=== PATIENT | male | born 1970 | race Caucasian/White ===

== ENCOUNTER 2020-02-17 17:05 | Emergency (ER) | payer OTHER ==
[~2020-02-17] VITALS: Ht 177.8 cm; Wt 102.1 kg
[2020-02-17] MEDS ORDERED: LISINOPRIL-HCT1 EAC1 PO (18:10)
[2020-02-17] MEDS ORDERED: DICYCLOMINE HCL10 MG PO (20:49)
== END 2020-02-17 21:22 | disposition home or self-care (01) ==
LOC: ED 17:05
DX: K52.9 Noninfective gastroenteritis and colitis, unspecified (principal); D72.829 Elevated white blood cell count, unspecified
CPT/HCPCS: 74018; 74177; 80053; 81001; 83690; 85025; 96361; 96375; 99284-25; J1885; J2270; J2405; J7030; Q9967

== ENCOUNTER 2024-02-03 11:05 | Emergency (ER) | payer SELFPAY ==
[~2024-02-03] VITALS: Ht 177.8 cm; Wt 98.8 kg
[~2024-02-03 11:05] MED LIST: DICYCLOMINE HCL10 MG PO; LISINOPRIL-HCT1 EAC1 PO
[2024-02-03] MEDS ORDERED: ondansetron HCL 4 MG/2 ML VIAL IV ONE (11:30)
[2024-02-03] MEDS ORDERED: SODIUM CHLORIDE 0.9% 1,000 ML IV ONE (11:45)
[2024-02-03 11:53] LABS: HEMATOCRIT 51.1 % (35.0-50.0); HEMOGLOBIN 16.9 g/dL (12.0-18.0); MCH 30.4 (27-36); MCV 92.2 fl (81-99); PLATELET COUNT 193 K/uL (140-440); RBC 5.54 M/ul (4.3-5.7); RDW 14.5 (10.5-15.0)
[2024-02-03 12:02] LABS: ALBUMIN 4.2 g/dL (3.4-5.0); ALBUMIN/GLOBULIN RATIO 1.2 (1.1-2.4); ANION GAP 15.1 (7-21); BILIRUBIN, TOTAL 2.7 ng/dL (0.2-1.0); BUN/CREATININE RATIO 11.85 (6.0-28.6); CALCIUM 9.1 mg/dL (8.5-10.1); CREATININE, SERUM 1.35 mg/dL (0.70-1.30); POTASSIUM 4.1 mmol/L (3.5-5.1); PROTEIN, TOTAL 7.7 g/dL (6.4-8.2)
[2024-02-03 12:09] LABS: BANDS, MANUAL DIFF 12; LYMPHOCYTES, MANUAL DIFF 1; MONOCYTES, MANUAL DIFF 3; NEUTROPHILS, MANUAL DIFF 84
[2024-02-03 12:38] LABS: BILIRUBIN, URINE POSITIVE (negative); BLOOD/HGB, URINE MODERATE (Negative); KETONE, URINE SMALL (Negative); LEUK ESTERASE, URINE NEGATIVE (negative); NITRITE, URINE NEGATIVE (negative)
[2024-02-03 12:43] LABS: RED BLOOD CELLS, URINE 41-50 /hpf (0-5)
[2024-02-03 12:44] LABS: BACTERIA, URINE RARE /hpf (negative); CASTS, URINE NONE SEEN \\lpf; COLLECTION TYPE, URINE CLEAN CATCH; CRYSTALS, URINE NONE SEEN (0-1+); EPITHELIAL CELLS, URINE SQUAMOUS 1+ /lpf (0-1+); REFLEX CULTURE, URINE No (No)
[2024-02-03] MEDS ORDERED: AMOXICILLIN/CLAVULANATE K 875 MG TAB PO ONE (15:00)
[2024-02-03 15:20] VITALS: BP 153/88
[2024-02-03] MEDS ORDERED: AMOX TR-K CLV1 EAC1 PO (15:27)
[2024-02-03] MEDS ORDERED: ONDANSETRON ODT8 MG PO (15:30)
== END 2024-02-03 15:39 | disposition home or self-care (01) ==
LOC: ED 11:05
PROVIDERS: Emergency Medicine
DX: K52.9 Noninfective gastroenteritis and colitis, unspecified (principal); I10 Essential (primary) hypertension
CPT/HCPCS: 36415; 74177; 80053; 81001; 83690; 85025; J2405; J7030; Q9967